=== PATIENT | female | born 1995 | race Caucasian/White ===

== ENCOUNTER 2021-04-23 11:45 | Emergency (ER) | payer BC, SELFPAY ==
[2021-04-23 11:47] VITALS: BP 143/67; PULSE 110; RESP 18; TEMP 36.6; O2SAT 98; BMI 38.8
--- NOTE | 2021-04-23 12:13 | US_ITS ---
STUDY: FIRST TRIMESTER OBSTETRICAL ULTRASOUND REASON FOR EXAM: Female, 26 years old Abnormal bleeding, threatened AB LMP: 01/16/2021 TECHNIQUE: Transabdominal and Transvaginal TECHNICAL QUALITY: Adequate. PRIOR ULTRASOUND: None. FINDINGS: There is visualization of a single gestational sac in a normal intrauterine position. . The gestational sac shape is irregular. There is no demonstrated yolk sac. There is visualization of the placenta. Placenta is posterior There is visualization of an embryo with no cardiac activity, consistent with intrauterine demise. The crown-rump length (CRL) measures 5.54 cm, indicating an estimated gestational age (EGA) of 12 weeks, 0 days. There is no demonstrated cardiac activity The uterus measures 11.7 x 7.5 x 6.8 cm. There is no demonstrated uterine fibroid. The cervix is closed. The right ovary measures 2.8 x 1.9 x 1.9 cm. There is no right ovarian cyst. There is no visualized right adnexal mass or complex lesion. The left ovary measures 3.2 x 2.6 x 2.0 cm. There is no left ovarian cyst. There is no visualized left adnexal mass or complex lesion. There is no fluid in the cul de sac. US/Transvaginal w/Preg US IMPRESSION: There is an irregular appearing gestational sac within the uterus containing a fetus with crown-rump length measuring 5.54 cm corresponding to an ultrasound dating of 12 weeks 0 days. However, NO heart tones are identified. Findings are consistent with demise. Short-term follow-up is recommended to assure resolution and no retained POC. Electronically Signed: Lucian Gresham MD at 13:59 EDT , Service support ,
--- NOTE | 2021-04-23 12:14 | ED.VIS.FEGU ---
HPI HPI - Female History of Present Illness Chief Complaint: Vag Bld, Preg Detail of Chief Complaint: Requesting second opinion about miscarriage Informant: patient and parent Narrative Narrative: Patient thought to be 13 weeks and 6 days . 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 Patient states that she feels otherwise normal and still feels . Patient has not had any pelvic pain or bleeding. Apparently she may have had an ultrasound 2 weeks ago and at that time there was no evidence of a heartbeat. Patient and family want a second opinion. Patient is G1, P0. Prior similar symptoms: No PFSH PFSH Home Medications NK 04/23/21 [History Last Taken Unknown] Allergy/AdvReac Type Severity Reaction Status Date / Time No Known Allergies Allergy Verified 04/23/21 11:49 Social History Smoking Status: Never smoker ROS ROS ED Constitutional Constitutional ED: Reports systems reviewed and no addt'l complaints, except as documented; Denies body ache(s), change in weight or chills Eyes Eyes: Denies acute decrease in peripheral vision, change in vision, double vision or loss of vision ENT ENT ED: Reports none; Denies ear pain, lip swelling, loss taste/smell, neck pain, otalgia or sore throat Cardiovascular Cardiovascular: Reports none; Denies abdominal pain, chest pain with activity, leg edema, lightheadedness, palpitations, rapid heart rate or syncope Respiratory/Chest Respiratory/Chest: Reports none; Denies change in mental status, dry cough, dyspnea, hemoptysis, shortness of breath at rest or shortness of breath with exertion Gastrointestinal Gastrointestinal: Reports none; Denies abdominal pain, change in stool character, diarrhea, hematemesis, hematochezia, melena, rectal bleeding or vomiting Genitourinary Genitourinary ED: Reports none; Denies abdominal discomfort, anuria, dysuria, genital pain or polyuria Musculoskeletal Musculoskeletal: Reports none; Denies arthralgias, back pain, difficulty walking, extremity pain, muscle weakness or myalgias Integumentary Reports none; Denies abscess or rash Neurologic Neurologic: Reports none; Denies abnormal gait, confusion, focal weakness, frequent falls, headache(s), loss of vision, numbness, paresthesias, radicular pain, vertigo or weakness Psychiatric Psychiatric: Reports systems reviewed and no addt'l complaints, except as documented and none; Denies behavioral changes, confusion, difficulty concentrating, hallucinations, suicidal ideation, tactile hallucinations or visual hallucinations Endocrine Endocrinology: Denies none, cold intolerance, excessive sweating, fatigue or heat intolerance Hematologic/Lymphatic Hematologic/Lymphatic: Reports none; Denies anemia, easy bleeding or easy bruising Allergic/Immunologic Allergic/Immunologic ED: Denies as per HPI, none, lip swelling, mouth swelling, throat swelling, tongue swelling or hives EXAM Physical Exam Const Vital Signs: 04/23/21 11:47 Temperature 97.9 F Temperature Source Temporal Pulse Rate 110 H Respiratory Rate 18 Blood Pressure 143/67 H Blood Pressure Mean 92 Pulse Ox 98 Oxygen Delivery Method Room Air Positive well nourished and well developed General Appearance ED: well developed and NAD HEENT Reports TM's clear and moist mucous membranes normocephalic and atraumatic; Negative for trauma or tenderness Tympanic Membrane ED: Yes TM's clear Eyes PERRL and EOMs intact bilaterally General Eye ED: Negative for pale conjunctiva or scleral icterus Neck no lymphadenopathy, supple and no JVD General: Negative for tenderness Chest Wall inspection of chest normal and palpation of chest normal Chest: Negative for tenderness Resp normal respiratory effort and clear to auscultation bilaterally Effort and Inspection: Negative for respiratory distress or pain with movement Auscultation: Negative for rhonchi, wheezes or diminished lung sounds Cardio regular rate, regular rhythm, S1 normal heart sound, S2 normal heart sound and no murmurs Peripheral Pulses: pulses 2+ throughout GI normal to inspection, nondistended, normoactive bowel sounds, soft to palpation, non-tender, non-distended and no masses Back/Spine no CVA tenderness and no thoracic nor lumbar tenderness Extremity normal to inspection General Extremety ED: Negative for edema General Extremity: Negative for edema Neuro oriented x3, CN's II-XII intact bilaterally, no sensory deficits noted and gait normal Sensorium / Orientation: awake, alert, oriented to person, oriented to place and oriented to time Motor Exam: strength 5/5 throughout and strength abnormal Psych mental status grossly normal Skin no rashes or lesions noted and no wounds MDM MDM MDM Narrative Medical decision making narrative: Results discussed with patient as well as her and her mother who is with her. Ultrasound did show demise. 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 Patient advised to return if severe abdominal pain heavy bleeding or condition should worsen anyway. Lab Data Labs: Laboratory Results - last 24 hr 04/23/21 04/23/21 04/23/21 12:35 12:35 12:35 WBC 7.6 RBC 4.36 Hgb 12.1 Hct 38.9 MCV 89.2 MCH 27.8 MCHC 31.1 L RDW Std Deviation 43.9 RDW Coeff of Ruddy 13.3 Plt Count 240 MPV 10.9 Immature Gran % (Auto) 0.400 Neut % (Auto) 68.6 Lymph % (Auto) 24.2 [place] % (Auto) 5.0 Eos % (Auto) 1.4 Baso % (Auto) 0.4 Absolute Neuts (auto) 5.2 Absolute Lymphs (auto) 1.85 Nucleated RBC % 0 HCG, Quant 38547 H Blood Type B POSITIVE Radiography Diagnostic Testing: Radiology Impression Obstetrics Ultrasound 04/23/21 12:13 IMPRESSION: There is an irregular appearing gestational sac within the uterus containing a fetus with crown-rump length measuring 5.54 cm corresponding to an ultrasound dating of 12 weeks 0 days. However, NO heart tones are identified. Findings are consistent with demise. Short-term follow-up is recommended to assure resolution and no retained POC. Electronically Signed: Lucian Gresham MD at 13:59 EDT , Service support , Discharge Plan Triage Chief Complaint: Vag Bld, Preg ED Provider: Neil Lopez Dx/Rx/DC Orders Clinical Impression: demise Instructions: ED DEMISE Prescriptions: No Action NK RF: 0 Primary Care Provider: Care Physician,No Primary Referrals: Ana Marroquin MD [STAFF PHYSICIAN] - 3-5 Days Care Physician,No Primary [Primary Care Provider] - Disposition Disposition: Home, Self Care
[2021-04-23 12:47] LABS: Absolute Lymphocyte Count 1.85 X10^3/uL (0.83-4.51); Absolute Neutrophil Count 5.2 X10^3/uL (2.0-7.7); Basophil# 0.03 X10^3/uL; Basophil% 0.4 % (0-1); Eosinophil# 0.11 X10^3/uL; Eosinophils% 1.4 % (0-5); Hematocrit 38.9 % (37-47); Hemoglobin 12.1 g/dL (12.0-15.0); Lymphocyte # 1.85 X10^3/ul (0.83-4.51); Lymphocyte % 24.2 % (19-41); Mean Corp Hgb Conc 31.1 g/dL (32-36); Mean Corpuscular Hgb 27.8 pg (27.0-32.0); Mean Corpuscular Volume 89.2 fL (81-99); Mean Platelet Vol. 10.9 fl (6.2-12.0); Monocyte# 0.38 X10^3/uL; NRBC Flagged by Analyzer 0 % (0-5); Neutrophil # 5.23 X10^3/uL (2.7-7.7); Neutrophil % 68.6 % (47-70); Platelet Count 240 K/mm3 (150-450); RBC Distribution Width CV 13.3 % (11.6-14.6); RBC Distribution Width SD 43.9 fl (35.1-43.9); Red Blood Count 4.36 M/mm3 (4.2-5.4); White Blood Count 7.6 K/mm3 (4.4-11.0)
[2021-04-23 13:39] LABS: hCG Titer Quant., Serum 32663 mIU/mL (1-3)
== END 2021-04-23 14:28 | disposition home or self-care (01) ==
PROVIDERS: Emergency Provider Emergency Medicine
DX: O02.1 Missed abortion (principal); Z3A.12 12 weeks gestation of pregnancy
CPT/HCPCS: 76817; 84702; 85025; 86900; 86901; 99283; A4216